=== PATIENT | male | born 1965 | race Caucasian/White ===

== ENCOUNTER 2018-12-16 12:14 | Inpatient (IN) | payer BC ==
[~2018-12-16] VITALS: Ht 167.6 cm; Wt 77.1 kg
[2018-12-16] VITALS (7 sets, daily range): BP systolic 114–124; BP diastolic 74–85
[~2018-12-16 12:14] MED LIST: FEXO1TAB42 PO
--- OUTSIDE RECORDS SUMMARY | 2018-12-16 12:19 | XMS REPORT | Continuity of Care Document ---
Author Organization Unknown Address Unknown Allergies There is no data. Medications There is no data. Problems There is no data. Procedures There is no data. Results There is no data. Encounters ACCT No. Visit Date/Time Discharge Status Pt. Type Provider Facility Loc./Unit Complaint [id number] 11/06/2013 10:27:00 11/06/2013 11:16:00 DIS Emergency
[2018-12-16] MEDS ORDERED: NITROGLYCERIN 0.4 MG SL TABS BTL 25'S SL ONE (12:21)
[2018-12-16] MEDS ORDERED: HEParin 1000 UNIT/ML (10ML VIAL) FOR BOLUS ONE (12:28)
[2018-12-16] MEDS ORDERED: HEParin (CATH LAB) 2,000 ML IV ONE (12:28)
[2018-12-16] MEDS ORDERED: MIDAZOLAM 5 MG/5 ML (VERSED) VIAL ONE (12:28)
[2018-12-16] MEDS ORDERED: NITRO DRIP 25000 MCG/D5W 250 ML IV ONE (12:28)
[2018-12-16] MEDS ORDERED: fentaNYL INJECTION 100 MCG/2 ML AMP ONE (12:28)
[2018-12-16] MEDS ORDERED: morphine INJ 10 MG/ML 1ML (SYR OR VIAL) IVP STA (12:28)
[2018-12-16] MEDS ORDERED: LIDOCAINE 1% INJ 20 ML 20 ML VIAL ONE (12:28)
[2018-12-16] MEDS ORDERED: NS IV 1000 ML 0 ML ONE (12:29)
[2018-12-16] MEDS ORDERED: ASPIRIN 81 MG CHEW (CHILDREN'S ASA) PO ONE (12:30)
[2018-12-16] MEDS ORDERED: NS IV 1000 ML 1,000 ML IV SCH (12:30)
[2018-12-16] MEDS ORDERED: EPTIFIBATIDE BOLUS 20 ML IV ONE (12:33)
[2018-12-16 12:34] LABS: BASOPHILS # (AUTO) 0.1 10^3/uL (0.0-0.1); BASOPHILS % (AUTO) 1 % (0-10); EOSINOPHILS # (AUTO) 0.3 10^3/uL (0.0-0.3); EOSINOPHILS % (AUTO) 3 % (0-10); HEMATOCRIT 48 % (40-54); HEMOGLOBIN 16.8 G/DL (13.3-17.7); LYMPHOCYTES # (AUTO) 2.6 X 10^3 (1.0-4.0); LYMPHOCYTES % (AUTO) 33 % (12-44); MEAN CORPUSCULAR HEMOGLOBIN 29 PG (25-34); MEAN CORPUSCULAR HGB CONC 35 G/DL (32-36); MEAN CORPUSCULAR VOLUME 82 FL (80-99); MEAN PLATELET VOLUME 10.8 FL (7.4-10.4); MONOCYTES # (AUTO) 0.9 X 10^3 (0.0-1.0); MONOCYTES % (AUTO) 12 % (0-12); NEUTROPHILS # (AUTO) 4.1 X 10^3 (1.8-7.8); NEUTROPHILS % (AUTO) 51 % (42-75); PLATELET COUNT 275 10^3/uL (130-400); RED CELL DISTRIBUTION WIDTH 13.8 % (10.0-14.5); WHITE BLOOD COUNT 7.9 10^3/uL (4.3-11.0)
--- OUTSIDE RECORDS SUMMARY | 2018-12-16 12:39 | XMS REPORT | Continuity of Care Document ---
Author Organization Unknown Address Unknown Allergies There is no data. Medications There is no data. Problems There is no data. Procedures There is no data. Results There is no data. Encounters ACCT No. Visit Date/Time Discharge Status Pt. Type Provider Facility Loc./Unit Complaint [id number] 11/06/2013 10:27:00 11/06/2013 11:16:00 DIS Emergency
[2018-12-16 12:46] LABS: PROTHROMBIN TIME PATIENT 13.5 SEC (12.2-14.7)
[2018-12-16 12:53] LABS: ALANINE AMINOTRANSFERASE 25 U/L (0-55); ALBUMIN 4.6 GM/DL (3.2-4.5); ALKALINE PHOSPHATASE 60 U/L (40-136); BILIRUBIN,TOTAL 0.6 MG/DL (0.1-1.0); BUN/CREATININE RATIO 12; CALCIUM 10.3 MG/DL (8.5-10.1); CARBON DIOXIDE 26 MMOL/L (21-32); CHLORIDE 105 MMOL/L (98-107); CREATININE SERUM 1.31 MG/DL (0.60-1.30); GFR ESTIMATED 58; GLUCOSE 116 MG/DL (70-105); MAGNESIUM 2.4 MG/DL (1.8-2.4); POTASSIUM 3.4 MMOL/L (3.6-5.0); SODIUM 142 MMOL/L (135-145); TOTAL PROTEIN 7.7 GM/DL (6.4-8.2)
--- NOTE | 2018-12-16 12:55 | ED Chest Pain ---
General Chief Complaint: Chest Pain Stated Complaint: HEART CATH;CHEST PAIN History of Present Illness Date Seen by Provider: Dec 16, 2018 Time Seen by Provider: 12:20 Initial Comments 23-year-old male presents after 45 minute onset of midsternal chest pain with radiation to left arm. He has no known cardiac risk factors, his parents are both living with no cardiac health problems. Grandparents had cardiac disease. He has had no previous visits with the investigation specialist or any cardiac workup. He is not currently taking any medications or allergic to any medications. No history of diabetes, pulmonary disease or GI chronic diseases. His mother gave him Zantac at onset of symptoms with no resolution. He has not taken aspirin or other blood thinners today. He does report nausea and vomiting 1 after the chest pain began and he is continuing to be diaphoretic. He rates his pain 10/10 Timing/Duration: 1 hour Severity/Quality: severe Location: substernal Radiation: arms (left), shoulders (left) Prior CP/Workup: no prior chest pain ASA po MANAGER TRANSPLANT: No NTG SL MANAGER TRANSPLANT: No Associated Symptoms: No abdominal pain, No back pain; diaphoresis; No dizziness, No edema, No fatigue, No fever/chills, No headache, No heartburn; nausea/vomiting; No rash, No shortness of breath, No swelling/lump in chest, No syncope, No weakness Allergies and Home Medications Allergies Coded Allergies: No Known Drug Allergies (Unverified , 11/09/09) Home Medications Fexofenadine Hcl/Pseudoephedr 1 Tab.sr .24 H Tab.sr.24h, 1 EACH PO DAILY, (Reported) Patient Home Medication List Home Medication List Reviewed: Yes Review of Systems Review of Systems Constitutional: no symptoms reported, see HPI Cardiovascular: See HPI, Chest Pain All Other Systems Reviewed Negative Unless Noted: Yes Past Vzlkytd-Hkqzcj-Zrufep Hx Past Med/Social Hx: Reviewed Nursing Past Med/Soc Hx Patient Social History Alcohol Use: Occasionally Uses Recreational Drug Use: No Smoking Status: Never a Smoker Recent Foreign Travel: No Contact w/Someone Who Travel: No Immunizations Up To Date Tetanus Booster (TDap): Less than 5yrs Past Medical History Reproductive Disorders: No Family Medical History No Pertinent Family Hx Father alzheimers Physical Exam Vital Signs Capillary Refill : Height, Weight, BMI Height: 5'6" Weight: 168lbs. oz. 76.259234rf; BMI Method:Stated General Appearance: No Apparent Distress, WD/WN HEENT: PERRL/EOMI, TMs Normal, Normal ENT Inspection, Pharynx Normal Neck: Full Range of Motion, Normal Inspection, Non Tender, Supple Respiratory: Chest Non Tender, Lungs Clear, Normal Breath Sounds Cardiovascular: Regular Rate, Rhythm, No Edema, No JVD, No Murmur, Normal Peripheral Pulses Gastrointestinal: Normal Bowel Sounds, Non Tender, Soft Extremity: Normal Capillary Refill, Normal Inspection, Normal Range of Motion Neurologic/Psychiatric: Alert, Oriented x3, No Motor/Sensory Deficits, Normal Mood/Affect Skin: Diaphoresis, Pallor Lymphatic: No Adenopathy Progress/Results/Core Measures Results/Orders Lab Results Laboratory Tests Test 12/16/18 12:25 Range/Units White Blood Count 7.9 4.3-11.0 10^3/uL Red Blood Count 5.83 4.35-5.85 10^6/uL Hemoglobin 16.8 13.3-17.7 G/DL Hematocrit 48 40-54 % Mean Corpuscular Volume 82 80-99 FL Mean Corpuscular Hemoglobin 29 25-34 PG Mean Corpuscular Hemoglobin Concent 35 32-36 G/DL Red Cell Distribution Width 13.8 10.0-14.5 % Platelet Count 275 130-400 10^3/uL Mean Platelet Volume 10.8 H 7.4-10.4 FL Neutrophils (%) (Auto) 51 42-75 % Lymphocytes (%) (Auto) 33 12-44 % Monocytes (%) (Auto) 12 0-12 % Eosinophils (%) (Auto) 3 0-10 % Basophils (%) (Auto) 1 0-10 % Neutrophils # (Auto) 4.1 1.8-7.8 X 10^3 Lymphocytes # (Auto) 2.6 1.0-4.0 X 10^3 Monocytes # (Auto) 0.9 0.0-1.0 X 10^3 Eosinophils # (Auto) 0.3 0.0-0.3 10^3/uL Basophils # (Auto) 0.1 0.0-0.1 10^3/uL Prothrombin Time 13.5 12.2-14.7 SEC INR Comment 1.0 0.8-1.4 Activated Partial Thromboplast Time 25 24-35 SEC My Orders Orders - WALDEMAR,CHRISTOPHER PARADICHLOROBENZENE TENDER Cbc With Automated Diff (12/16/18 12:20) Magnesium (12/16/18 12:20) Chest 1 View, Ap/Pa Only (12/16/18 12:20) Ekg Tracing (12/16/18 12:20) Cardiac Profile 1 (12/16/18 12:20) Comprehensive Metabolic Panel (12/16/18 12:20) Myoglobin Serum (12/16/18 12:20) Protime With Inr (12/16/18 12:20) Partial Thromboplastin Time (12/16/18 12:20) O2 (12/16/18 12:20) Monitor-Rhythm Ecg Trace Only (12/16/18 12:20) Ed Iv/Invasive Line Start (12/16/18 12:20) Aspirin Chewable Tablet (Baby Aspirin Ch (12/16/18 12:30) Nitroglycerin 0.4 Mg Btl 25's (Nitrostat (12/16/18 12:21) Morphine Injection (Morphine Injection (12/16/18 12:28) Ed Iv/Invasive Line Start (12/16/18 12:30) Ns Iv 1000 Ml (Sodium Chloride 0.9%) (12/16/18 12:30) Lidocaine 1% Inj 20 Ml (Xylocaine 1% Inj (12/16/18 12:28) Midazolam Injection (Versed Injection) (12/16/18 12:28) Fentanyl Injection (Sublimaze Injection (12/16/18 12:28) Heparin (Bolus Per Protocol) (Heparin (B (12/16/18 12:28) Nitro Drip 51495 Mcg/D5w (Nitroglycerin (12/16/18 12:28) Heparin (Continuous Crusher Operator) (Heparin (Continuous Crusher Operator)) (12/16/18 12:28) Ns Iv 1000 Ml (Sodium Chloride 0.9%) (12/16/18 12:29) Medications Given in ED Current Medications Medications Dose Ordered Sig/Michael Route Start Time Stop Time Status Last Admin Dose Admin Aspirin 324 mg ONCE ONCE PO 12/16/18 12:30 12/16/18 12:31 DC 12/16/18 12:37 324 MG Progress Progress Note : Time: 12:20 Progress Note Patient seen and evaluated, chest x-ray, EKG, and labs. Aspirin 324 mg, hypotensive will hold Nitro at this time and give 1 L NS and [address] Nicole notified, recommended to take patient to recyclable products sorter, they were notified. Explained results of EKG to patient and family. Agreeable to heart catheterization. 1235 Dr. Nicole in ED. Discussed plan of care with the patient's . 1240 Patient to recyclable products sorter. Initial ECG Impression Date: Dec 16, 2018 Initial ECG Impression Time: 12:21 Initial ECG Rate: 62 Initial ECG Rhythm: Normal Sinus (with ST elevaltion in Anterior leads. ) Initial ECG Intervals: Normal Initial ECG Intervals OH 176, QRSD 74, QT 380, QTC 380. [place] P 16, QRS 25, T -9. Initial ECG Comparisson: No Previous ECG Available Comment Reviewed with Dr. Pena, agreed with interpretation. Departure Impression Primary Impression: Chest pain Qualified Codes: R07.9 - Chest pain, unspecified Additional Impression: ST elevation (STEMI) myocardial infarction Qualified Codes: I21.09 - ST elevation (STEMI) myocardial infarction involving other coronary artery of anterior wall Disposition: ADMITTED INPATIENT Condition: Stable Admissions Decision to Admit Reason: Admit from ER (General) Decision to Admit/Date: Dec 16, 2018 Time/Decision to Admit Time: 12:30 Departure-Patient Inst. Referrals: JOSE SZYMANSKI MD (PCP) Primary Care Physician Copy Copies To 1: JG NICOLE MD FACP FAC CCDS; JOSE SZYMANSKI MD, AM[facility] Dec 16, 2018 12:55
[2018-12-16] MEDS ORDERED: CLOPIDOGREL 300 MG (PLAVIX) TABLET PO ONE (13:41)
--- NOTE | 2018-12-16 14:10 | Cardiology History & Physical ---
HPI-Cardiology Cardiology H&P Date of Admission 12/16/18 Primary Care Physician Neo Gonzalez MD Attending Physician Shell Nicole MD [facility], CCDS Consulting Physician [facility] CC: Chest pain HPI: 53 yo man with onset of midsternal chest pain shortly prior to presentation to ER: mid sternal, mod to severe, pressure feeling, associated with diaphoresis, radiating to shoulders, never experienced before, w/o any aggravating or relieving factors. Denies previous cp or palp or shortness of breath or syncope. Review of Systems-Cardiology Review of Systems Constitutional: No chills, No fever, No weight loss, No weight gain Eyes: No vision change Ears/Nose/Throat: No ear discharge, No nasal drainage Respiratory: As described under HPI Cardiovascular: As described under HPI Gastrointestinal: No diarrhea, No nausea; vomiting (with chest pain at time of presentation) Genitourinary: No hematuria, No urine frequency changes, No urine coloration changes Musculoskeletal: back pain (chronic) Skin: No rash, No ulcerations Psychiatric/Neurological: No seizure, No focal weakness, No syncope Hematologic: No bleeding abnormalities All Other Systems Reviewed Negative Unless Noted: Yes BFQ-Neribe-Qaeyyh Hx Patient Social History Alcohol Use: Occasionally Uses Recreational Drug Use: No Smoking Status: Never a Smoker 2nd Hand Smoke Exposure: No Recent Foreign Travel: No Recent Infectious Disease Expo: No Hospitalization with Isolation: Denies Immunizations Up To Date Tetanus Booster (TDap): Less than 5yrs Past Medical History PMH As described under Assessment. Family Medical History Family Medical History: Does not report fam h/o early CAD or sCD Allergies and Home Medications Allergies Coded Allergies: No Known Drug Allergies (Unverified , 11/09/09) Home Medications Fexofenadine Hcl/Pseudoephedr 1 Tab.sr .24 H Tab.sr.24h, 1 EACH PO DAILY, (Reported) Patient Home Medication List Home Medication List Reviewed: Yes Physical Exam-Cardiology Physical Exam Vital Signs/I&O 12/16/18 12/16/18 12:17 12:39 Temp 97.9 97.9 Pulse 61 61 Resp 18 18 B/P (MAP) 104/54 (71) 104/54 (71) Pulse Ox 98 98 Capillary Refill : Less Than 3 Seconds Constitutional: AAO x 3, well-developed, well-nourished HEENT: EOMI, hearing is well preserved; No xanthelasmas are seen Neck: carotid pulses are 2 + bilaterally, with good upstrokes Respiratory: No accessory muscle use; other (good bilat air entry) Cardiovascular: regular rate-rhythm, S1 and S2, systolic murmur (soft EDITH at card base) Gastrointestinal: No tender; soft; No guarding, No rebound; audible bowel sounds Extremities: No clubbing, No cyanosis, No significant edema Neurologic/Psychiatric: oriented x 3, other (moves all limbs equally) Skin: No rash on exposed areas, No ulcerations on exposed areas Data Review Labs Laboratory Tests 12/16/18 12:25: White Blood Count 7.9, Red Blood Count 5.83, Hemoglobin 16.8, Hematocrit 48, Mean Corpuscular Volume 82, Mean Corpuscular Hemoglobin 29, Mean Corpuscular Hemoglobin Concent 35, Red Cell Distribution Width 13.8, Platelet Count 275, Mean Platelet Volume 10.8H, Neutrophils (%) (Auto) 51, Lymphocytes (%) (Auto) 33, Monocytes (%) (Auto) 12, Eosinophils (%) (Auto) 3, Basophils (%) (Auto) 1, Neutrophils # (Auto) 4.1, Lymphocytes # (Auto) 2.6, Monocytes # (Auto) 0.9, Eosinophils # (Auto) 0.3, Basophils # (Auto) 0.1, Prothrombin Time 13.5, INR Comment 1.0, Activated Partial Thromboplast Time 25, Sodium Level 142, Potassium Level 3.4L, Chloride Level 105, Carbon Dioxide Level 26, Anion Gap 11, Blood Urea Nitrogen 16, Creatinine 1.31H, Estimat Glomerular Filtration Rate 58, BUN/Creatinine Ratio 12, Glucose Level 116H, Calcium Level 10.3H, Corrected Calcium , Magnesium Level 2.4, Total Bilirubin 0.6, Aspartate Amino Transf (AST/SGOT) 17, Alanine Aminotransferase (ALT/SGPT) 25, Alkaline Phosphatase 60, Myoglobin 34.7, Troponin I < 0.028, Total Protein 7.7, Albumin 4.6H Laboratory Tests 12/16/18 12:25 A/P-Cardiology Assessment/Admission Diagnosis Ac STEMI (anterolateral) Mild renal insuff Mild hypokalemia Admission Status: Inpatient Order (span 2 midnights) Reason for Inpatient Admission: Ac STEMI Discussion and Recomendations * Emergency cath/PCI * We reviewed rationale, procedure, risks, benefits, potential complications. He understands and wishes to proceed Clinical Quality Measures AMI/AHF: ASA po Prior to arrival: SHELL Mccarthy MD FACP FAC CCDS Dec 16, 2018 14:10
[2018-12-16] MEDS ORDERED: PATIENT MAY USE OWN MEDS, ALL PO SCH (14:15)
[2018-12-16] MEDS ORDERED: ACETAMINOPHEN 325 MG TABLET PO PRN (14:15)
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
--- NOTE | 2018-12-16 14:59 | CARDIAC CATHETERIZATION ---
DATE OF SERVICE: 12/16/2018 CARDIAC CATHETERIZATION AND CORONARY INTERVENTION REPORT INDICATIONS FOR THE PROCEDURE: The patient is a 53-year-old man who presents to the emergency room with chest discomfort of new onset and this was midsternal with radiation to the shoulders and associated with diaphoresis. It was moderate to severe in intensity. It was unrelieved with sublingual nitroglycerin. Electrocardiogram was suggestive of mild anterior lead ST elevation. Emergency cardiac catheterization was recommended with possible ad hoc coronary intervention. Informed consent was obtained. DESCRIPTION OF PROCEDURE: He was brought to the cardiac catheterization laboratory. Right groin was prepared and draped in the usual sterile fashion. Lidocaine 1% was used for local anesthesia. Modified Seldinger technique was used to advance a 6-Maldivian sheath in the right femoral artery. We carried out left coronary angiography with a 6-Maldivian JL4 guide catheter and percutaneous intervention was carried out in the left anterior descending artery that is described below. Subsequently, we carried out right coronary angiography with a 6-Maldivian JR4 catheter and a left heart catheterization with a 6-Maldivian pigtail catheter. Left ventricular angiography was performed. The pigtail catheter was pulled back to the aortic root and then removed. Angiography of the right femoral artery was carried out through the sheath. Mynx was used to achieve hemostasis. He tolerated the procedure well. Percutaneous intervention to the left anterior descending artery: anterior descending artery was completely occluded in its mid portion following the origin of a small caliber first diagonal and the first septal. We used a 6-Maldivian JL4 guide catheter. We gave 6000 units of intravenous heparin. We gave a double bolus of Integrilin. We used a ChoICE floppy wire to cross the complete occlusion in the mid left anterior descending artery. We were able to accomplish this with moderate difficulty. We carried out balloon angioplasty at the site of complete occlusion with Emerge 2.0 x 30 mm balloon. Subsequent angiography revealed that the antegrade flow had improved from OUMOU 0 to OUMOU 3. There was still 70%-80% stenosis at the site of the lesion and there was another 70-80% in the mid left anterior descending. We tried to advance Alpine Xience 2.25 x 38 mm stent to cover both these lesions, but we were not able to do so. We carried out further balloon angioplasty with the Emerge 2.5 x 20 mm balloon. We advanced a ChoICE extra support wire across the lesion and the tip was placed in the distal vessel. The extra support guidewire was used as a rail and we were able to advance Alpine Xience 2.25 x 38 mm stent to the lesions in the mid left anterior descending artery. The stent was carefully positioned and deployed at 20 atmospheres achieving a final stent lumen size of approximately 3.69. Full stent expansion was achieved. Subsequent angiography revealed 0% residual stenosis at the previous sites of up to 100% stenosis. Flow throughout the vessel was normal. Within the mid to distal left anterior descending, there is further approximately 60% stenosis, which was not intervened on. The patient tolerated the procedure well. LEFT VENTRICULAR ANGIOGRAPHY: Left ventricular angiography was carried out in right anterior oblique projection. Left ventricular angiography shows that the left ventricular systolic function is well preserved. There is mild anteroapical hypokinesis. Left ventricular ejection fraction is 50-55%. CORONARY ANGIOGRAPHY: Coronary calcification is present in all coronary vessels, especially in the mid and proximal portions. The left anterior descending artery was completely occluded following the origin of the first diagonal and the first septal. The first diagonal has a diffuse moderately severe disease with stenoses up to 70-80% in its proximal portion, but the vessel is of a small caliber and not amenable to intervention. The mid left anterior descending artery was intervened on and as described above. Following deployment of Alpine Xience 2.25 x 38 mm stent, deployed at 20 atmospheres, there is no significant residual stenosis and the flow in the distal left anterior descending artery has improved from OUMOU 0 to OUMOU 3. The ramus intermedius artery has a 70%-80% proximal stenosis. The left circumflex artery has diffuse mild to moderate disease. Right coronary artery has moderate disease in its mid portion with stenoses up to approximately 50%. CONCLUSIONS: 1. Multivessel coronary artery disease, as detailed above. The culprit lesion was complete occlusion in the mid left anterior descending to which successful intervention was carried out. Following deployment of Alpine Xience 2.25 x 38 mm stent (at 20 atmospheres), there is no significant residual stenosis at the site of the lesions. Distally, the distal left anterior descending artery has approximately 60% stenosis that was not intervened on. The first diagonal branch of left anterior descending artery has 70-80% proximal stenosis, but is of a small caliber. The ramus intermedius artery has 70-80% proximal stenosis that was not intervened on today. The left circumflex artery is nondominant and has diffuse moderate disease. The right coronary artery is dominant and has a long up to 60% stenoses in its mid portion. 2. Well-preserved global left ventricular systolic function with ejection fraction of 50-55%. DISCUSSION AND RECOMMENDATIONS: Risk factor modification has been reviewed with him. He is being hospitalized. Treatment will be with the dual antiplatelet therapy, statins, beta blockers. Further recommendations will be based on his hospital course. Job ID: [id number] DocumentID: [id number] Dictated Date: 12/16/2018 13:51:49 Batch Trucker Date: 12/16/2018 14:58:49 Dictated By: JG VERA MD, MA, FACP, FACC, MTDD
[2018-12-16] MEDS: NS IV 1000 ML 1,000 ML IV SCH ×2 (15:16→23:30)
[2018-12-16] MEDS ORDERED: ATORVASTATIN 80 MG (LIPITOR) TABLET PO SCH (21:00)
--- NOTE | 2018-12-16 21:30 | NUR ---
PT UP TO WALK HALLS, DENIES CP, LIGHT HEADEDNESS OR SOA. RIGHT GROIN SITE SOFT, DRESSING CLEAN, DRY AND INTACT.
[2018-12-17 00:01] VITALS: BP 134/88
[2018-12-17 03:24] LABS: HEMOGLOBIN 14.9 G/DL (13.3-17.7); RED CELL DISTRIBUTION WIDTH 13.8 % (10.0-14.5); WHITE BLOOD COUNT 7.8 10^3/uL (4.3-11.0)
[2018-12-17 03:43] LABS: BUN/CREATININE RATIO 15; CALCIUM 9.2 MG/DL (8.5-10.1); CARBON DIOXIDE 25 MMOL/L (21-32); CHLORIDE 105 MMOL/L (98-107); CHOLESTEROL 180 MG/DL (< 200); CREATININE SERUM 1.13 MG/DL (0.60-1.30); GFR ESTIMATED > 60; GLUCOSE 103 MG/DL (70-105); HDL CHOLESTEROL 38 MG/DL (40-60); POTASSIUM 4.2 MMOL/L (3.6-5.0); SODIUM 141 MMOL/L (135-145); TRIGLYCERIDES 98 MG/DL (<150); VLDL CHOLESTEROL 20 MG/DL (5-40)
[2018-12-17 04:02] VITALS: BP 123/80
[2018-12-17 08:00] VITALS: BP 120/79
--- NOTE | 2018-12-17 08:57 | Progress Note-Cardiology ---
Cardiology SOAP Progress Note Subjective: Sitting up in bed. Family x2 at the bedside. States he feels much better today. No c/o CP, dyspnea, palpitations, syncope or near syncope. C/O "mild groin tenderness". Has been up ambulating in the halls without difficulty. Objective: I&O/Vital Signs 12/17/18 12/17/18 12/17/18 12/17/18 07:00 08:00 08:00 12:00 Temp 97.7 Pulse 84 75 76 Resp 17 B/P (MAP) 120/79 (93) 106/70 (82) Pulse Ox 100 95 O2 Delivery Room Air Room Air Room Air 12/17/18 12/17/18 12:31 16:00 Temp 98.4 Pulse 76 65 Resp 18 B/P (MAP) 111/75 (87) Pulse Ox 96 O2 Delivery Room Air 12/17/18 00:00 Intake Total 1000 ml Balance 1000 ml Weight (Pounds): 170 Weight (Ounces): 0 Weight (Calculated Kilograms): 77.702845 Side: right Groin site without hematoma: Yes Condition: DP/PT pulses palpable, extremity w/d/p Bruising: mild bruising Constitutional: AAO x 3, well-developed, well-nourished Respiratory: No accessory muscle use; other (good bilat air entry) Cardiovascular: regular rate-rhythm, S1 and S2, systolic murmur (soft EDITH at ca rd base) Gastrointestional: No tender; soft; No guarding, No rebound; audible bowel sounds Extremities: No clubbing, No cyanosis, No significant edema Neurologic/Psychiatric: oriented x 3, other (moves all limbs equally) Skin: No rash on exposed areas, No ulcerations on exposed areas Results/Procedures: Labs Laboratory Tests 12/17/18 02:55: White Blood Count 7.8, Red Blood Count 5.12, Hemoglobin 14.9, Hematocrit 43, Mean Corpuscular Volume 84, Mean Corpuscular Hemoglobin 29, Mean Corpuscular Hemoglobin Concent 35, Red Cell Distribution Width 13.8, Platelet Count 213, Mean Platelet Volume 11.0H, Sodium Level 141, Potassium Level 4.2, Chloride Level 105, Carbon Dioxide Level 25, Anion Gap 11, Blood Urea Nitrogen 17, Creatinine 1.13, Estimat Glomerular Filtration Rate > 60, BUN/Creatinine Ratio 15, Glucose Level 103, Calcium Level 9.2, Triglycerides Level 98, Cholesterol Le olga 180, LDL Cholesterol Direct 140H, VLDL Cholesterol 20, HDL Cholesterol 38L A/P: Assessment: Ac STEMI (anterolateral) Multivessel coronary artery disease: The culprit lesion was complete occlusion in the mid left anterior descending to which successful intervention was carried out. Following deployment of Alpine Xience 2.25 x 38 mm stent (at 20 atmospheres), there is no significant residual stenosis at the site of the lesions. Distally, the distal left anterior descending artery has approximately 60% stenosis that was not intervened on. The first diagonal branch of left anterior descending artery has 70-80% proximal stenosis, but is of a small caliber. The ramus intermedius artery has 70-80% proximal stenosis that was not intervened on. The left circumflex artery is nondominant and has diffuse moderate disease. The right coronary artery is dominant and has a long up to 60% stenoses in its mid portion. Well-preserved global left ventricular systolic function with ejection fraction of 50-55%. Per cardiac cath of 12-16-18 Echo of 12-16-18 showed LVEF 50-55%. Grade 1 diastolic dysfunction. Hypokinesis of the apical anterior myocardium. RVSP 23 mmHg Mild renal insuff - improved Mild hypokalemia - resolved Plan: * S/P Emergency cath with successful PCI * Continue current cardiac regimen including statin, dual anti-platelet tx, BB\\ * Increase ambulation today * Discussed coronary status and tx plan Physician Assessment Physician Assessment Feels good. Wishes to go home. No cp or palp or syncope or shortness of breath Lungs: good bilat air entry Cor: reg Ext: no c/c/e; mild R groin bruising A&R * As documented in our note above that I updated (italics) and as noted below * I spoke with him and his and answered CV-related questions * Outpt f/u advised Clinical Quality Measures AMI/AHF: ASA po Prior to arrival: ESVERO Leon [facility] Dec 17, 2018 08:57 JG VERA MD [facility] Dec 17, 2018 18:48
[2018-12-17] MEDS ORDERED: CLOPIDOGREL 75 MG (PLAVIX) TABLET PO SCH (09:00)
[2018-12-17] MEDS ORDERED: ASPIRIN 81 MG CHEW (CHILDREN'S ASA) PO SCH (09:00)
[2018-12-17] MEDS: NS IV 1000 ML 1,000 ML IV SCH (09:11)
[2018-12-17] MEDS ORDERED: METO-387 PO (10:10)
[2018-12-17] MEDS ORDERED: ASPI-999 PO (10:10)
[2018-12-17] MEDS ORDERED: CLOP75TA28 PO (10:10)
[2018-12-17] MEDS ORDERED: ATOR80TA76 PO (10:10)
[2018-12-17 12:00] VITALS: BP 106/70
--- NOTE | 2018-12-17 14:15 | NUR ---
Pt is [employer]od[employer]. If he is still here he would like sacraments.
[2018-12-17 16:00] VITALS: BP 111/75
--- NOTE | 2018-12-17 19:12 | Cardiology Discharge Summary ---
Diagnosis/Chief Complaint Date of Admission Dec 16, 2018 at 14:39 Date of Discharge Dec 17, 2018 at 16:45 Final/Discharge Diagnosis Ac STEMI (anterolateral) Multivessel coronary artery disease: The culprit lesion was complete occlusion in the mid left anterior descending to which successful intervention was carried out. Following deployment of Alpine Xience 2.25 x 38 mm stent (at 20 atmospheres), there is no significant residual stenosis at the site of the lesions. Distally, the distal left anterior descending artery has approximately 60% stenosis that was not intervened on. The first diagonal branch of left anterior descending artery has 70-80% proximal stenosis, but is of a small caliber. The ramus intermedius artery has 70-80% proximal stenosis that was not intervened on. The left circumflex artery is nondominant and has diffuse moderate disease. The right coronary artery is dominant and has a long up to 60% stenoses in its mid portion. Well-preserved global left ventricular systolic function with ejection fraction of 50-55%. Per cardiac cath of 12-16-18 Echo of 12-16-18 showed LVEF 50-55%. Grade 1 diastolic dysfunction. Hypokinesis of the apical anterior myocardium. RVSP 23 mmHg Mild renal insuff - improved Mild hypokalemia - resolved Chief Complaint/HPI Chief Complaint/HPI CC: Chest pain HPI: 53 yo man with onset of midsternal chest pain shortly prior to presentation to ER: mid sternal, mod to severe, pressure feeling, associated with diaphoresis, radiating to shoulders, never experienced before, w/o any aggravating or relieving factors. Denies previous cp or palp or shortness of breath or syncope. Please today's (12/17/18) progress note for hosp course and condition at discharge Discharge Summary Procedures None. Discussion & Recommendations Home Medications Reviewed patient Home Medication Reconciliation performed by pharmacy medication reconciliations senior games technician and/or nursing. Patients Allergies have been reviewed. Discharge Home Medications: Reviewed and agree with Discharge Medication list on patient's Discharge Instruction sheet Clinical Quality Measures AMI/AHF: ASA po Prior to arrival: No DVT/VTE Risk/Contraindication: Risk Factor Score Per Nursin RFS Level Per Nursing on Admit: 3=High JG VERA MD FACP [facility] Dec 17, 2018 19:12
== END 2018-12-17 16:45 | disposition home or self-care (01) | DRG 247 ==
LOC: EDUNIT# 12:14 → ER 12:15 → CATH 12:36 → ICU 14:39
PROVIDERS: ADMIT Internal Medicine Cardiovascular Disease; ATTEND Internal Medicine Cardiovascular Disease
PROC: 027034Z Dilation of Coronary Artery, One Artery with Drug-eluting Intraluminal Device, Percutaneous Approach (ICD-10-PCS; principal; 2018-12-16)
PROC: 4A023N7 Measurement of Cardiac Sampling and Pressure, Left Heart, Percutaneous Approach (ICD-10-PCS; 2018-12-16)
PROC: B2111ZZ Fluoroscopy of Multiple Coronary Arteries using Low Osmolar Contrast (ICD-10-PCS; 2018-12-16)
PROC: B2151ZZ Fluoroscopy of Left Heart using Low Osmolar Contrast (ICD-10-PCS; 2018-12-16)
PROC: B41F1ZZ Fluoroscopy of Right Lower Extremity Arteries using Low Osmolar Contrast (ICD-10-PCS; 2018-12-16)
DX: I21.09 ST elevation (STEMI) myocardial infarction involving other coronary artery of anterior wall (principal); I25.10 Atherosclerotic heart disease of native coronary artery without angina pectoris; N28.9 Disorder of kidney and ureter, unspecified; E87.6 Hypokalemia
CPT/HCPCS: 36415; 80048; 80053; 80061; 83735; 83874; 84484; 85025; 85027; 85610; 85730; 93005; 93041; 93306; 93458; 96374

== ENCOUNTER 2019-01-21 06:49 | Day surgery (SDC) | payer BC ==
[~2019-01-21] VITALS: Ht 167.6 cm; Wt 84.1 kg
[2019-01-21] VITALS (17 sets, daily range): BP systolic 90–127; BP diastolic 68–84
[~2019-01-21 06:49] MED LIST changes: +ASPI-999 PO; +ATOR80TA76 PO; +CLOP75TA28 PO; +METO-387 PO
[2019-01-21] MEDS ORDERED: LIDOCAINE 1% INJ 20 ML 20 ML VIAL ONE (07:01)
[2019-01-21] MEDS ORDERED: HEParin (CATH LAB) 2,000 ML IV ONE (07:01)
[2019-01-21] MEDS ORDERED: NS IV 1000 ML 1,000 ML ONE (07:01)
[2019-01-21] MEDS ORDERED: NS IV 1000 ML 1,000 ML IV SCH (07:12)
[2019-01-21 07:38] LABS: HEMOGLOBIN 15.6 G/DL (13.3-17.7); RED CELL DISTRIBUTION WIDTH 13.6 % (10.0-14.5); WHITE BLOOD COUNT 4.1 10^3/uL (4.3-11.0)
[2019-01-21] MEDS ORDERED: PRAV20TA3 PO (07:47)
[2019-01-21 07:50] LABS: PROTHROMBIN TIME PATIENT 13.9 SEC (12.2-14.7)
[2019-01-21 08:01] LABS: ALANINE AMINOTRANSFERASE 25 U/L (0-55); ALBUMIN 4.2 GM/DL (3.2-4.5); ALKALINE PHOSPHATASE 67 U/L (40-136); BILIRUBIN,TOTAL 0.9 MG/DL (0.1-1.0); BUN/CREATININE RATIO 14; CALCIUM 9.5 MG/DL (8.5-10.1); CARBON DIOXIDE 24 MMOL/L (21-32); CHLORIDE 107 MMOL/L (98-107); CHOLESTEROL 168 MG/DL (< 200); CREATININE SERUM 1.22 MG/DL (0.60-1.30); GFR ESTIMATED > 60; GLUCOSE 96 MG/DL (70-105); HDL CHOLESTEROL 35 MG/DL (40-60); POTASSIUM 3.9 MMOL/L (3.6-5.0); SODIUM 141 MMOL/L (135-145); TOTAL PROTEIN 7.1 GM/DL (6.4-8.2); TRIGLYCERIDES 86 MG/DL (<150); VLDL CHOLESTEROL 17 MG/DL (5-40)
[2019-01-21] MEDS ORDERED: fentaNYL INJECTION 100 MCG/2 ML AMP ONE (09:01)
[2019-01-21] MEDS ORDERED: MIDAZOLAM 5 MG/5 ML (VERSED) VIAL ONE (09:01)
[2019-01-21] MEDS ORDERED: HEParin 1000 UNIT/ML (10ML VIAL) FOR BOLUS ONE (09:16)
[2019-01-21] MEDS ORDERED: EPTIFIBATIDE BOLUS 20 ML IV ONE (09:17)
[2019-01-21] MEDS ORDERED: NITRO DRIP 25000 MCG/D5W 250 ML IV ONE (09:50)
[2019-01-21] MEDS ORDERED: CLOPIDOGREL 75 MG (PLAVIX) TABLET ONE (10:10)
[2019-01-21] MEDS ORDERED: ASPIRIN 81 MG CHEW (CHILDREN'S ASA) ONE (10:11)
--- NOTE | 2019-01-21 10:38 | Cardiac Procedure Note-CS/ASA ---
Pre-Procedure Note Pre-Op Procedure Note H&P Reviewed The H&P was reviewed, patient examined and no changes noted. Date H&P Reviewed: Jan 21, 2019 Time H&P Reviewed: 09:30 Conscious Sedation Pre-Proced Time 09:30 ASA Score 3 For ASA 3 and 4: Consider anesthesia and medical clearance. Also, for patients with a history of failed moderate sedation consider anesthesia. Airway Lungs Heart ASA score ASA 1: a normal healthy patient ASA 2: a patient with a mild systemic disease (mid diabetes, controlled hypertension, obesity ASA 3: a patient with a severe systemic disease that limits activity (angina, COPD, prior Myocardial infarction) ASA 4: a patient with an incapacitating disease that is a constant threat to life (CHF, renal failure) ASA 5: a moribund patient not expected to survive 24 hrs. (ruptured aneurysm) ASA 6: a declared brain- patient whose organs are being harvested. For emergent operations, add the letter E after the classification Mallampati Classification Grade 2 Sedation Plan Analgesia, Amnesia, Plan communicated to team members, Discussed options with patient/fam, Discussed risks with patient/fam The patient is an appropriate candidate to undergo the planned procedure, sedation, and anesthesia. The patient immediately re-assessed prior to indication. JG VERA MD FACP [facility] Jan 21, 2019 10:38
[2019-01-21] MEDS ORDERED: PATIENT MAY USE OWN MEDS, ALL PO SCH (10:45)
[2019-01-21] MEDS ORDERED: ACETAMINOPHEN 325 MG TABLET PO PRN (10:45)
--- NOTE | 2019-01-21 10:50 | NUR ---
ADI LOBATO admitted to room CU3-1, with an admitting diagnosis of HEART CATH, on 02/21/2019 from [facility] via [facility], accompanied by LIZ GABRIEL FROM [employer] O[employer].ADI LOBATO introduced to surroundings, call light, bed controls, phone, TV, temperature control, lights, meal times, smoking policy, visitor policy, side rail policy, bathrooms and showers. Patient Rights given to patient in the handbook. ADI LOBATO verbalizes understanding that [facility] is not responsible for the loss or damage to any personal effects or valuables that are kept in the patients posession during their hospitalization. ADI LOBATO verbalizes understanding of Interdisciplinary Patient Education. Patient and/or family were informed about the Rapid Response Team and its purpose.
[2019-01-21] MEDS: NS IV 1000 ML 1,000 ML IV SCH ×2 (11:14→20:57)
--- NOTE | 2019-01-21 12:40 | CARDIAC CATHETERIZATION ---
DATE OF SERVICE: 01/21/2019 CARDIAC CATHETERIZATION CORONARY INTERVENTION REPORT INDICATIONS: The patient is a 53-year-old man who is known to have coronary artery disease and who underwent coronary intervention for myocardial infarction in December 2018. The mid left anterior descending artery was stented. He has multiple vessel coronary artery disease. Today, he comes in for further evaluation of his coronary artery disease and possible coronary intervention (if needed). He has the symptoms of exertional shortness of breath. DESCRIPTION OF PROCEDURE: He was brought to the cardiac catheterization laboratory in a fasting state. Right groin was prepared and draped in the usual sterile fashion. Lidocaine 1% was used for local anesthesia. Modified Seldinger technique was used to advance a 6-Prydeinig sheath in the right femoral artery. A 6-Prydeinig JL4 catheter for left coronary angiography. A 6-Prydeinig JR4 catheter for right coronary angiography. INTERVENTION TO THE RAMUS INTERMEDIUS ARTERY: Following completion of the diagnostic procedure, we carried out percutaneous intervention of the ramus intermedius, which was exhibiting approximately 80% proximal and ostial stenosis. We used a 6-Prydeinig JL4 guide catheter to engage the left coronary artery. We advanced a BMW wire across the lesion and the tip was placed in the distal vessel. We carried out balloon angioplasty with Emerge 2.0 x 20 mm balloon. This reduced the stenosis to approximately 50%. We then stented the lesion with Alpine Xience 2.25 x 18 mm stent that was deployed at 10 atmospheres. Full stent expansion was achieved. Subsequent angiography revealed 0% residual stenosis and flow throughout the vessel is normal. The patient tolerated the procedure well. Angiography of the right femoral artery was carried out through the sheath at the beginning of the procedure. At the end of the procedure, Mynx was used to achieve hemostasis. He received 5000 units of intravenous heparin during the procedure and a double bolus of Integrilin. CORONARY ANGIOGRAPHY: Left main coronary artery does not exhibit significant disease. There is a widely patent stent in the mid left anterior descending artery. Distal to the standard portion, there is another approximately 60% stenosis in the mid left anterior descending artery. This was not intervened on. The ramus intermedius artery had 80% ostial and proximal stenosis that was stented as described above. Following deployment of the stent, there was no significant residual stenosis. The stent used was Alpine Xience 2.25 x 18 mm. The left circumflex artery has approximately 50% mid vessel stenosis, following the origin of the ramus intermedius. The right coronary artery has approximately 50% mid vessel stenosis. CONCLUSIONS: Coronary artery disease as detailed above. There is a widely patent stent in the mid left anterior descending. The mid to distal left anterior descending artery has 60% stenosis. The ramus intermedius had 80% ostial and proximal stenosis and it was successfully stented with Alpine Xience 2.25 x 18 mm stent. The left anterior descending artery has Alpine Xience 2.25 x 38 mm stent that was placed in December 2018. The left circumflex and the right coronary artery have approximately 50% mid vessel stenoses. DISCUSSION AND RECOMMENDATIONS: Dual antiplatelet therapy is being continued. Risk factor modification was advised. Outpatient followup is advised. Job ID: [id number] DocumentID: [id number] Dictated Date: 01/21/2019 10:21:46 Workforce Planner Date: 01/21/2019 12:38:37 Dictated By: JG VERA MD, MA, FACP, FACC, MTDD
[2019-01-21] MEDS: PSEUDOEPHEDRINE HCL 30 MG (SUDAFED) TAB PO SCH ×2 (13:32→19:08)
[2019-01-21] MEDS: LORATADINE (CLARITIN) 10 MG TAB PO SCH (13:32)
--- NOTE | 2019-01-21 14:46 | NUR ---
Pt is [employer]. Expecting discharge tomorrow. Indicates no spiritual or sacramental needs.
--- NOTE | 2019-01-21 17:09 | NUR ---
Report received from Annabel HILL. Pt sitting up in bed in NAD. He denies any complaints. Right groin assessed. Minimal shadowing extending past outlined area on groin dressing. Site soft and non-tender. Distal pulses intact with no other s/s noted.
[2019-01-22] VITALS: BP 120/84
[2019-01-22] MEDS: PSEUDOEPHEDRINE HCL 30 MG (SUDAFED) TAB PO SCH ×2 (00:34→04:47)
[2019-01-22 03:00] LABS: MEAN PLATELET VOLUME 10.5 FL (7.4-10.4); RED CELL DISTRIBUTION WIDTH 13.4 % (10.0-14.5)
[2019-01-22 03:20] LABS: BUN/CREATININE RATIO 14; CALCIUM 8.7 MG/DL (8.5-10.1); CARBON DIOXIDE 25 MMOL/L (21-32); CHLORIDE 105 MMOL/L (98-107); CREATININE SERUM 1.18 MG/DL (0.60-1.30); GFR ESTIMATED > 60; GLUCOSE 107 MG/DL (70-105); POTASSIUM 4.2 MMOL/L (3.6-5.0); SODIUM 138 MMOL/L (135-145)
[2019-01-22 04:00] VITALS: BP 114/87
[2019-01-22] MEDS: LORATADINE (CLARITIN) 10 MG TAB PO SCH (08:25)
[2019-01-22 08:27] VITALS: BP 120/89
[2019-01-22] MEDS ORDERED: ASPIRIN 81 MG CHEW (CHILDREN'S ASA) PO SCH (09:00)
[2019-01-22] MEDS ORDERED: CLOPIDOGREL 75 MG (PLAVIX) TABLET PO SCH (09:00)
--- NOTE | 2019-01-22 10:02 | Discharge Inst-Cardiology ---
Discharge Inst-Cardiac Problems Reviewed?: Yes Discharge Medications Continued Medications: Aspirin (Aspirin) 81 Mg Tab.chew 81 MG PO DAILY, #30 TAB 5 Refills Clopidogrel Bisulfate (Clopidogrel) 75 Mg Tablet 75 MG PO DAILY, #30 TAB 5 Refills Fexofenadine Hcl/Pseudoephedr (Jahaira-D 24 Hour Tablet) 1 Tab.sr .24 H Tab.sr.24h 1 EACH PO DAILY, TAB Metoprolol Succinate (Metoprolol Succinate) 25 Mg Tab.er.24h 25 MG PO DAILY, #30 TAB 5 Refills Pravastatin Sodium (Pravastatin Sodium) 20 Mg Tablet 20 MG PO HS, TAB JG VERA MD FACP [facility] CCDS Jan 22, 2019 10:02
--- NOTE | 2019-01-22 10:03 | Discharge Inst-Post CATH ---
Discharge Inst-CATH/EP Problems Reviewed?: Yes Post Cardiac Cath/EP D/C Inst Follow Up/Plan F/u with Dr Nicole in 2 weeks ACTIVITY * Go Home directly and rest. * Limit activity of the leg (or wrist if it was used) for 7 days including aerobics, swimming, jogging, bicycling, etc. * Restrict stair-climbing for 7 days if possible, if not, climb up with your non-cath leg, then bring together on the same step. * Avoid lifting, pushing, pulling or excessive movement of the affected extremity for 7 days. * Customary sexual activity may be resumed after 2 days-use caution not to use a position that strains or causes pain to the affected extremity. * No driving for 24 hours. * NO SMOKING. * Avoid straining for bowel movements for 7 days. * Gentle walking on level ground is allowed. * Returning to work will depend on the type of procedure and the results. Your doctor will discuss this with you. CALL YOUR DOCTOR FOR ANY OF THE FOLLOWING: *If bleeding from the puncture site occurs- Apply gentle pressure to site with clean cloth and call your doctor or EMS. * If a knot or lump forms under the skin, increases in size, or causes pain. * If bruising appears to be worsening or moving further down your leg instead of disappearing. * Temperature above 101 F. CARE OF YOUR GROIN INCISION; * Bruising or purple discoloration of the skin near the puncture site is common. * You may shower only, no bathtub bathing for 5 days. Be careful to avoid slipping as your leg may feel stiff. * If a closure device was used on your femoral artery, please see the attached guide regarding care of the device and your leg. * Leave dressing on FOR 24 hours. CARE OF YOUR WRIST INCISION; * Bruising or purple discoloration of the skin near the puncture site is common. * You may shower. * DO NOT submerge wrist. * Leave dressing on FOR 24 hours. JG NICOLE MD [facility] Jan 22, 2019 10:03
--- NOTE | 2019-01-22 15:18 | Progress Note - Cardiology ---
Cardiology SOAP Progress Note Subjective: No cp or palp or syncope or groin discomfort. Feels well and wishes to go home. Objective: I&O/Vital Signs 01/22/19 01/22/19 01/22/19 01/22/19 04:00 07:00 07:52 08:27 Temp 96.6 97.5 Pulse 68 68 72 Resp 18 18 B/P (MAP) 114/87 (96) 120/89 (99) Pulse Ox 94 96 O2 Delivery Room Air Room Air Room Air 01/22/19 10:40 B/P (MAP) 01/22/19 00:00 Intake Total 610 ml Output Total 650 ml Balance -40 ml Weight (Pounds): 185 Weight (Ounces): 5.0 Weight (Calculated Kilograms): 84.787142 Condition: DP/PT pulses palpable Device Insertion Site: without hematoma Bruising: mild bruising Constitutional: AAO x 3, well-developed, well-nourished Respiratory: No accessory muscle use; lungs clear to percussion, lungs clear to auscultation Cardiovascular: regular rate-rhythm, S1 and S2, systolic murmur (faint EDITH at card base) Gastrointestional: No tender; soft; No guarding, No rebound; audible bowel sounds Extremities: No clubbing, No cyanosis, No significant edema Neurologic/Psychiatric: oriented x 3, grossly intact, power is 5/5 both on sides Skin: No rash on exposed areas, No ulcerations on exposed areas Results/Procedures: Labs Laboratory Tests 01/22/19 02:54: White Blood Count 5.0, Red Blood Count 4.80, Hemoglobin 14.0, Hematocrit 41, Mean Corpuscular Volume 84, Mean Corpuscular Hemoglobin 29, Mean Corpuscular Hemoglobin Concent 35, Red Cell Distribution Width 13.4, Platelet Count 152, Mean Platelet Volume 10.5H, Sodium Level 138, Potassium Level 4.2, Chloride Level 105, Carbon Dioxide Level 25, Anion Gap 8, Blood Urea Nitrogen 16, Creatinine 1.18, Estimat Glomerular Filtration Rate > 60, BUN/Creatinine Ratio 14, Glucose Level 107H, Calcium Level 8.7 01/22/19 11:12: Glucometer 98 Microbiology 01/21/19 MRSA Screen - Final, Complete MRSA not isolated Laboratory Tests 01/21/19 07:25 01/22/19 02:54 A/P: Assessment: CAD. Last card cath of 01/21/19: There is a widely patent stent in the mid left anterior descending. The left anterior descending artery has Alpine Xience 2.25 x 38 mm stent that was placed in December 2018. The mid to distal left anterior descending artery has 60% stenosis. The ramus intermedius had 80% ostial and proximal stenosis and it was successfully stented with Alpine Xience 2.25 x 18 mm stent. The left circumflex and the right coronary artery have approximately 50% mid vessel stenosis. Echo of 12-16-18 showed LVEF 50-55%. Grade 1 diastolic dysfunction. Hypokinesis of the apical anterior myocardium. RVSP 23 mmHg HLD - questionable intolerance to statins Plan: * We had a detailed discussion regarding cath findings and interventions undertaken * We are continuing DAPT * He has had relative intolerance to statins, but is willing to try a lower dose * Close outpt f/u is advised JG VERA MD FACP [facility] Jan 22, 2019 15:18
== END 2019-01-22 10:50 | disposition home or self-care (01) ==
LOC: CATH 06:49 → ICU 10:50 → CATH 01-22 10:50
PROVIDERS: ATTEND Internal Medicine Cardiovascular Disease
DX: I25.10 Atherosclerotic heart disease of native coronary artery without angina pectoris (principal); E78.5 Hyperlipidemia, unspecified; Z79.02 Long term (current) use of antithrombotics/antiplatelets; Z79.82 Long term (current) use of aspirin; Z79.899 Other long term (current) drug therapy
CPT/HCPCS: 36415; 80048; 80053; 80061; 82962; 85027; 85610; 85730; 87081; 93005; 93454

== ENCOUNTER 2019-04-18 08:50 | Outpatient (RCR) | payer BC ==
[~2019-04-18 08:50] MED LIST changes: +PRAV20TA3 PO
== END 2019-05-25 | disposition home or self-care (01) ==
LOC: CR 08:50
PROVIDERS: ATTEND Internal Medicine Cardiovascular Disease
DX: I25.2 Old myocardial infarction (principal); Z95.5 Presence of coronary angioplasty implant and graft
CPT/HCPCS: 93798

== ENCOUNTER 2019-04-22 07:52 | Day surgery (SDC) | payer BC ==
[~2019-04-22] VITALS: Ht 165.1 cm; Wt 79.5 kg
[2019-04-22] VITALS (7 sets, daily range): BP systolic 128–139; BP diastolic 83–96
[2019-04-22] MEDS ORDERED: NS IV 1000 ML 1,000 ML IV SCH ×2 (08:00→11:29)
[2019-04-22] MEDS ORDERED: NS IV 1000 ML 1,000 ML ONE (08:03)
[2019-04-22] MEDS ORDERED: LIDOCAINE 1% INJ 20 ML 20 ML VIAL ONE (08:03)
[2019-04-22] MEDS ORDERED: HEParin (CATH LAB) 2,000 ML IV ONE (08:04)
[2019-04-22 08:26] LABS: HEMOGLOBIN 16.6 G/DL (13.3-17.7); MEAN PLATELET VOLUME 10.3 FL (7.4-10.4); RED CELL DISTRIBUTION WIDTH 13.6 % (10.0-14.5); WHITE BLOOD COUNT 4.4 10^3/uL (4.3-11.0)
[2019-04-22 08:39] LABS: INR 1.1 (0.8-1.4); PROTHROMBIN TIME PATIENT 14.4 SEC (12.2-14.7)
[2019-04-22 08:44] LABS: ALANINE AMINOTRANSFERASE 20 U/L (0-55); ALBUMIN 4.5 GM/DL (3.2-4.5); ALKALINE PHOSPHATASE 60 U/L (40-136); BILIRUBIN,TOTAL 0.7 MG/DL (0.1-1.0); BUN/CREATININE RATIO 11; CALCIUM 9.6 MG/DL (8.5-10.1); CARBON DIOXIDE 26 MMOL/L (21-32); CHLORIDE 105 MMOL/L (98-107); CHOLESTEROL 189 MG/DL (< 200); CREATININE SERUM 1.22 MG/DL (0.60-1.30); GFR ESTIMATED > 60; GLUCOSE 107 MG/DL (70-105); HDL CHOLESTEROL 37 MG/DL (40-60); SODIUM 139 MMOL/L (135-145); TOTAL PROTEIN 7.5 GM/DL (6.4-8.2); TRIGLYCERIDES 130 MG/DL (<150); VLDL CHOLESTEROL 26 MG/DL (5-40)
[2019-04-22] MEDS ORDERED: FLU QUADRIvalent (5+ YOA) 2019-2020 (AFLURIA) 0.5 ML IM ONE (08:45)
--- NOTE | 2019-04-22 08:50 | NUR ---
Spoke to patient he brought prescription medication bottles in and stated when he last took his medications.
[2019-04-22] MEDS ORDERED: HEParin 1000 UNIT/ML (10ML VIAL) FOR BOLUS ONE (08:59)
[2019-04-22] MEDS ORDERED: fentaNYL INJECTION 100 MCG/2 ML AMP ONE (08:59)
[2019-04-22] MEDS ORDERED: MIDAZOLAM 5 MG/5 ML (VERSED) VIAL ONE (09:00)
[2019-04-22] MEDS ORDERED: EPTIFIBATIDE BOLUS 20 ML IV ONE (09:47)
[2019-04-22] MEDS ORDERED: NITRO DRIP 25000 MCG/D5W 0 ML IV ONE (09:52)
--- NOTE | 2019-04-22 11:29 | Cardiac Procedure Note-CS/ASA ---
Pre-Procedure Note Pre-Op Procedure Note H&P Reviewed The H&P was reviewed, patient examined and no changes noted. Date H&P Reviewed: Apr 22, 2019 Time H&P Reviewed: 09:00 Conscious Sedation Pre-Proced Time 09:00 ASA Score 3 For ASA 3 and 4: Consider anesthesia and medical clearance. Also, for patients with a history of failed moderate sedation consider anesthesia. Airway Lungs Heart ASA score ASA 1: a normal healthy patient ASA 2: a patient with a mild systemic disease (mid diabetes, controlled hypertension, obesity ASA 3: a patient with a severe systemic disease that limits activity (angina, COPD, prior Myocardial infarction) ASA 4: a patient with an incapacitating disease that is a constant threat to life (CHF, renal failure) ASA 5: a moribund patient not expected to survive 24 hrs. (ruptured aneurysm) ASA 6: a declared brain- patient whose organs are being harvested. For emergent operations, add the letter E after the classification Mallampati Classification Grade 2 Sedation Plan Analgesia, Amnesia, Plan communicated to team members, Discussed options with patient/fam, Discussed risks with patient/fam The patient is an appropriate candidate to undergo the planned procedure, sedation, and anesthesia. The patient immediately re-assessed prior to indication. JG VERA MD FACP [facility] Apr 22, 2019 11:29 POS
[2019-04-22] MEDS ORDERED: PATIENT MAY USE OWN MEDS, ALL PO SCH (11:30)
--- NOTE | 2019-04-22 11:45 | NUR ---
Contacted [facility], who stated that it would be a few hours until they would be able to transport pt to [place]. This RN contacted [facility] who stated they would return my call.
--- NOTE | 2019-04-22 12:04 | Cardiology Discharge Summary ---
Diagnosis/Chief Complaint Date of Admission 04/22/19 Date of Discharge 04/22/19 Final/Discharge Diagnosis CAD. S/p PCI LAD (Alp Xience 2.25 x 38) in December 2018; s/p PCI RI (Alp Xience 2.25 x 18) in Jan 2019. Last card cath of 04/22/19: 90% instent in mid left anterior descending, patent RI ostial and prox stent, 60% prox LCX (small and nondominant), mid vessel occlusion of dominant RCA with L to R collaterals, LVEDP 12 mmHg, mild anterolateral hypokinesis, LVEF 50%. Unsuccessful attempt at PCI to RCA Echo of 12-16-18 showed LVEF 50-55%. Grade 1 diastolic dysfunction. Hypokinesis of the apical anterior myocardium. RVSP 23 mmHg HLD - statin tx (intolerant to Lipitor d/t diarrhea) - tolerating pravastatin Carotid u/s of Jan 2019 showed minimal plaque Chief Complaint/HPI Chief Complaint/HPI Cath for recurrent angina yielded above results. I spoke with Dr Flores of [facility] surg sv[facility] at [place] who accepts pt in transfer for consideration of CABG I spoke with Mr Enrique and his . They agree Arrangements are being made Discharge Summary Hospital Course Pending Labs Laboratory Tests 04/22/19 08:20: White Blood Count 4.4, Red Blood Count 5.79, Hemoglobin 16.6, Hematocrit 47, Mean Corpuscular Volume 82, Mean Corpuscular Hemoglobin 29, Mean Corpuscular Hemoglobin Concent 35, Red Cell Distribution Width 13.6, Platelet Count 220, Mean Platelet Volume 10.3, Prothrombin Time 14.4, INR Comment 1.1, Activated Partial Thromboplast Time 28, Sodium Level 139, Potassium Level 4.0, Chloride Level 105, Carbon Dioxide Level 26, Anion Gap 8, Blood Urea Nitrogen 14, Creatinine 1.22, Estimat Glomerular Filtration Rate > 60, BUN/Creatinine Ratio 11, Glucose Level 107, Calcium Level 9.6, Corrected Calcium 9.2, Total Bilirubin 0.7, Aspartate Amino Transf (AST/SGOT) 19, Alanine Aminotransferase (ALT/SGPT) 20, Alkaline Phosphatase 60, Total Protein 7.5, Albumin 4.5, Triglycerides Level 130, Cholesterol Level 189, LDL Cholesterol Direct 134, VLDL Cholesterol 26, HDL Cholesterol 37 Discussion & Recommendations Home Medications Reviewed patient Home Medication Reconciliation performed by pharmacy medication reconciliations hyperbaric technician and/or nursing. Patients Allergies have been reviewed. Discharge Home Medications: Reviewed and agree with Discharge Medication list on patient's Discharge Instruction sheet JG VERA MD FACP [facility] Apr 22, 2019 12:04 POS
--- NOTE | 2019-04-22 12:23 | CARDIAC CATHETERIZATION ---
DATE OF SERVICE: CARDIAC CATHETERIZATION REPORT The patient is a 53-year-old man with known coronary artery disease, who has had stenting to the mid left anterior descending and the ostial and proximal ramus intermedius, who has had recent symptoms of unstable angina. Cardiac catheterization was carried out today after having obtained an informed consent. DESCRIPTION OF PROCEDURE: He was brought to the cardiac catheterization laboratory in a fasting state. Right groin was prepared and draped in the usual sterile fashion. Lidocaine 1% was used for local anesthesia. Modified Seldinger technique was used to advance a 5-[place] sheath in right femoral artery, 5-[place] JL4 catheter for left coronary angiography, 5-[place] African JR4 catheter for right coronary angiography, 5-[place] pigtail catheter was used for left heart catheterization and left ventricular angiography. Angiography of the right femoral artery was carried out through the sheath at the beginning of the procedure. Attempted intervention to the right coronary artery. Following completion of the diagnostic procedure, we attempted intervention to the mid right coronary, which was completely occluded. We exchanged the sheath over a wire for a 6-Central African sheath. We gave 5000 units of intravenous heparin and double bolus of Integrilin. We used a 6-Central African JR4 guide catheter with side holes. We used a ChoICE floppy and ChoICE PT Graphix wire and Emerge 2.0 x 20 mm balloon for wire support, but we were not able to cross the occlusion in the mid right coronary artery. The equipment was removed. The sheath was removed and Mynx was used to achieve hemostasis. HEMODYNAMICS: Left ventricular end-diastolic pressure following coronary angiography was 12 mmHg. There was no significant pressure gradient on pullback across the aortic valve. Ascending aortic pressure was 111/75 with a mean of 45 mmHg. CORONARY ANGIOGRAPHY: Left main coronary artery is free of significant disease. Left anterior descending artery has 30% ostial stenosis and up to 90% mid vessel stenosis within a previously placed stent that is known to be Alpine Xience 2.25 x 38 mm and that was placed in 12/2018. The ramus intermedius has a patent stent in its ostial and proximal portion that is known to be Alpine Xience 2.25 x 18 mm and that was placed in 01/2019. The left circumflex artery is of a small caliber and is nondominant and has approximately 60% stenosis just beyond the ramus intermedius. The right coronary artery is occluded in its mid portion and is collateralized from the left coronary system. LEFT VENTRICULAR ANGIOGRAPHY: Left ventricular angiography was carried out in the right anterior oblique projection. Global left ventricular systolic function is mildly impaired. There is mild left ventricular systolic function is at the lower limit of normal to mildly impaired. There is mild anterolateral hypokinesis. CONCLUSIONS: 1. Multivessel coronary artery disease including 90% mid vessel stenosis in the left anterior descending artery (mostly in-stent within Alpine Xience 2.25 x 38 mm stent), 60% to 70% ostial/proximal stenosis within a small nondominant left circumflex, patent 2.25 x 18 mm ostial and proximal stent within a ramus intermedius, and mid vessel occlusion of the right coronary with [id number] collaterals. Attempted intervention to the right coronary was unsuccessful. 2. Mild impairment of global left ventricular systolic function with anterolateral hypokinesis and left ventricular ejection fraction of approximately 50%. 3. Normal left ventricular end-diastolic. DISCUSSION AND RECOMMENDATIONS: Based on the findings above, coronary artery bypass surgery appears to be the best treatment option. I called Dr. Flores of the [facility]. Dr. Flores has kindly accepted the patient in transfer. Arrangements are being made. Job ID: [id number] DocumentID: [id number] Dictated Date: 04/22/2019 10:21:23 [employer] Operator Date: 04/22/2019 12:23:10 Dictated By: JG VERA MD, MA, FACP, FACC, MTDD
--- NOTE | 2019-04-22 13:11 | NUR ---
1230-[facility] called again, as this RN has not received a call. They stated that the natural [employer] plant supervisor still has not called her back to say wether or not they could transport the pt. This RN contacted [facility] and informed them of the situation. [employer] Supervisor stated that if Martina is able to take them, then call [facility] back and let them know, otherwise they would assume that they are still to take pt when available.
--- NOTE | 2019-04-22 13:50 | NUR ---
[facility] here to take pt to [facility]. Report given to EMS. Pt alert and oriented and groin soft with oozing circled and shown to EMS staff.
--- NOTE | 2019-04-22 13:55 | NUR ---
Report given to LIZ Madsen at [facility].
== END 2019-04-22 13:50 | disposition short-term general hospital (02) ==
LOC: CATH 07:52 → CSD 10:47 → CATH 13:50
PROVIDERS: ATTEND Internal Medicine Cardiovascular Disease
DX: I25.10 Atherosclerotic heart disease of native coronary artery without angina pectoris (principal); K21.9 Gastro-esophageal reflux disease without esophagitis; Z79.82 Long term (current) use of aspirin; Z79.01 Long term (current) use of anticoagulants; Z79.899 Other long term (current) drug therapy; E78.5 Hyperlipidemia, unspecified; I77.89 Other specified disorders of arteries and arterioles; I25.2 Old myocardial infarction
CPT/HCPCS: 36415; 80053; 80061; 85027; 85610; 85730; 87081; 93458

== ENCOUNTER → 2020-02-04 | Outpatient (CLI) | payer BC ==
[~2020-02-04] MED LIST changes: -METO-387 PO; +MTP25TSR PO
[2020-02-04 12:40] LABS: BUN/CREATININE RATIO 17; CALCIUM 9.7 MG/DL (8.5-10.1); CARBON DIOXIDE 26 MMOL/L (21-32); CHLORIDE 105 MMOL/L (98-107); CREATININE SERUM 1.25 MG/DL (0.60-1.30); GFR ESTIMATED > 60; GLUCOSE 91 MG/DL (70-105); POTASSIUM 4.6 MMOL/L (3.6-5.0); SODIUM 138 MMOL/L (135-145)
== END ==
LOC: LAB 12:08
PROVIDERS: ATTEND Nurse Practitioner Family
DX: I25.10 Atherosclerotic heart disease of native coronary artery without angina pectoris (principal); I77.89 Other specified disorders of arteries and arterioles; E78.5 Hyperlipidemia, unspecified
CPT/HCPCS: 36415; 80048

== ENCOUNTER 2021-10-20 06:47 | Outpatient (CLI) | payer BC ==
[~2021-10-20] VITALS: Ht 167.6 cm; Wt 85.9 kg
[2021-10-20] MEDS ORDERED: LOSA25TA41 PO (12:17)
== END 2021-10-20 12:33 | disposition home or self-care (01) ==
LOC: PREOP 06:47
PROVIDERS: ATTEND Surgery
DX: Z01.818 Encounter for other preprocedural examination (principal)